=== PATIENT | male | born 1975 | race American Indian/Alaskan Native ===

== ENCOUNTER 2018-09-18 10:36 | Outpatient (CLI) | payer OTHER ==
[2018-09-18 11:20] LABS: Blood Urea Nitrogen 14 mg/dL (9-20)
--- NOTE | 2018-09-18 16:49 | Magnetic Resonance Report ---
FINAL REPORT EXAM: MR BRAIN WO/W CON HISTORY: EPILEPSYOUTPATIENT TECHNIQUE: MRI of the brain without lissett sign with contrast Comparison: None FINDINGS: There is a small, approximately 9 millimeter (AP) x 8 millimeter (lateral) x 7.6 millimeter (cranioca udal) extra-axial mass in the anterior inferior interhemispheric fissure. This is isointense to lehman matter on T1 and T2 weighted images and most likely represents a small meningioma. There is no eviden ce of significant mass effect and no evidence of associated edema in the adjacent brain. There are no other areas of abnormal intracranial enhancement and no other evidence of intracranial m ass. There is no evidence of acute ischemia nor intracranial hemorrhage. Brain architecture appears to be normal. Myelination is normal in appearance. The ventricles are normal size. Expected flow void is demonstrated within the major intracranial vessels. The extracranial structures are notable for mild prominence of the adenoids. The craniocervical junction is unremarkable in appearance. IMPRESSION: 1. Small, approximately 9 millimeter, probable meningioma, in the anterior inferior interhemispheric fissure. 2. Otherwise normal study.
== END 2018-09-18 10:37 | disposition home or self-care (01) ==
LOC: MRI 10:36
PROVIDERS: ATTEND Family Medicine
DX: G40.909 Epilepsy, unspecified, not intractable, without status epilepticus (principal); R56.9 Unspecified convulsions
CPT/HCPCS: 36415; 70553; 82565; 84520; A9577

== ENCOUNTER 2018-11-06 09:43 | Outpatient (CLI) | payer OTHER ==
--- NOTE | 2018-11-06 12:44 | Ultrasound Report ---
Testicular sonogram: History: Left-sided testicular pain. Findings: The right testes measures 4.8 x 2.3 x 3.3 cm. Uniform echogenicity with normal color flow. Normal epididymis. Left testes measures 4.1 x 2 x 3.1 cm uniform echogenicity with normal color flow. The left epididymis margin appears more echogenic however no fluid is noted and no mass is identified. Bilateral minimal hydrocele. Single lymph node is identified in the left inguinal area measuring 1.8 x 0.7 cm. Normal hilum is identified a normal cortex is noted. Impression: Echogenic epididymis of left testes may be nonspecific and related to old injury or chronic epididymitis. No acute findings are noted. Additional findings as detailed above.
== END 2018-11-06 09:44 | disposition home or self-care (01) ==
LOC: US 09:43
PROVIDERS: ATTEND Family Medicine
DX: N50.812 Left testicular pain (principal)
CPT/HCPCS: 93975